=== PATIENT | male | born 1980 | race Caucasian/White ===

== ENCOUNTER 2023-07-20 16:55 | Inpatient (IN) | payer OTHER ==
[~2023-07-20] VITALS: Ht 185.4 cm; Wt 107.9 kg
[2023-07-20 17:18] LABS: Eosinophils # (auto) 0.2 10 ^3/uL (0-0.8); Lymphocytes # (auto) 1.2 10 ^3/uL (0.4-5.4); Lymphocytes % (auto) 5.4 % (10.0-50.0); Monocytes # (auto) 1.1 10 ^3/uL (0-1.3)
[2023-07-20 17:19] LABS: Basophils # (auto) 0.1 10 ^3/uL (0-0.2); Basophils % (auto) 0.4 % (0.0-2.0); Eosinophils % (auto) 0.8 % (0.0-7.0); Hematocrit 50.3 % (41.0-53.0); Hemoglobin 16.8 g/dL (13.5-17.5); Mean Corpuscular Hemoglobin 31.3 pg (28.0-32.0); Mean Corpuscular Hgb Conc. 33.5 g/dL (32.0-36.0); Mean Corpuscular Volume 93.4 fL (80.0-100.0); Monocytes % (auto) 5.2 % (0.0-12.0); Neutrophils # (auto) 19.3 10 ^3/uL (1.6-8.6); Neutrophils % (auto) 88.2 % (37.0-80.0); Red Blood Cells 5.39 10^6/uL (4.5-5.90); Red Cell Distribution Width 13.4 % (11.8-14.3); White Blood Cell 21.9 10^3/uL (4.4-10.8)
[2023-07-20 17:33] LABS: Alanine Aminotransferase 35 U/L (7-40); Albumin 4.5 g/dL (3.2-4.8); Alkaline Phosphatase 100 U/L (46-116); Anion Gap 5 (5-15); Aspartate Aminotransferase 20 U/L (13-40); BUN/Creatinine Ratio 13.9 (10.0-20.0); Blood Urea Nitrogen 15 mg/dL (9-23); Carbon Dioxide 29 mmol/L (20-30); Chloride 99 mmol/L (98-107); Glucose 105 mg/dL (74-106); INR 1.12 (0.9-1.15); Partial Thromboplastin Time 32.5 SEC (24.5-34.5); Potassium 4.6 mmol/L (3.5-5.1); Prothrombin Time 11.7 sec (9.3-11.8); Sodium 133 mmol/L (136-145)
[2023-07-20 17:34] LABS: Bilirubin, Total 1.2 mg/dL (0.2-1.0); Total Protein 7.7 g/dL (5.7-8.2)
[2023-07-20] MEDS: IOHEXOL 350 MG/ML 100ML IJ ONE (20:28)
[2023-07-20 20:47] LABS: Urine Bacteria NONE SEEN /hpf (None Seen); Urine Blood Negative /uL (Negative); Urine Clarity Clear (Clear); Urine Color Yellow (Yellow); Urine Mucus FEW (None Seen); Urine Protein, UAD Negative (Negative); Urine Specific Gravity 1.019 (1.001-1.035); Urine Urobilinogen Normal (Negative); Urine WBC <1 /hpf (0 - 3)
[2023-07-20] MEDS: ASPirin 325 MG TAB PO ONE (21:09)
[2023-07-20] MEDS: ONDANSETRON HCL 4 MG/2 ML VIAL IV ONE ×2 (21:10→21:14)
[2023-07-20] MEDS: MORPHINE SULFATE INJ 2 MG/ml SYRG IV ONE ×2 (21:10→21:13)
[2023-07-20] MEDS ORDERED: cefTRIAXone 2GM/50ML D5W 50 ML IV ONE (21:15)
[2023-07-20] MEDS: IPRATROPIUM BROM 0.5 MG/2.5ML INH SOL NEB ONE (21:38)
[2023-07-20] MEDS: ALBUTEROL SULF 2.5 MG/0.5ML(0.5%) NEB SOLN NEB ONE (21:38)
[2023-07-20] MEDS: DexAMETHasone SOD PHOS 10MG/1ML VIAL INJ IV ONE (21:58)
[2023-07-20] MEDS: cefTRIAXone 1GM/50ML D5W 50 ML IV ONE ×2 (21:58)
[2023-07-20] MEDS: ACETAMINOPHEN 325 MG TAB PO ONE (21:58)
[2023-07-20] MEDS: AZITHROMYCIN 500MG/ 250ML 250 ML IV ONE (23:48)
[2023-07-20 23:54] VITALS: RESP 30; O2SAT 94
[2023-07-21] MEDS ORDERED: NITROGLYCERIN 0.4 MG SL TAB SL PRN (00:30)
[2023-07-21 00:47] VITALS: BP 136/74; PULSE 112; RESP 20; O2SAT 95
[2023-07-21] MEDS: MORPHINE SULFATE INJ 2 MG/ml SYRG IV PRN ×2 (00:57→05:37)
[2023-07-21] MEDS: SODIUM CHLORIDE 0.9% 1,000 ML IV SCH ×2 (01:01→18:03)
[2023-07-21] MEDS ORDERED: metroNIDAZOLE 500MG/100ML 100 ML IV SCH (02:00)
[2023-07-21 03:53] LABS: Red Blood Cells 4.97 10^6/uL (4.5-5.90); Red Cell Distribution Width 13.4 % (11.8-14.3)
[2023-07-21 03:57] LABS: Hematocrit 46.8 % (41.0-53.0); Hemoglobin 15.5 g/dL (13.5-17.5); Mean Corpuscular Hemoglobin 31.1 pg (28.0-32.0); Mean Corpuscular Hgb Conc. 33.1 g/dL (32.0-36.0)
[2023-07-21 04:00] LABS: White Blood Cell 36.9 10^3/uL (4.4-10.8)
[2023-07-21 04:02] LABS: Basophils % (manual) 0 (0.0-2.0); Blast Cells 0; Eosinophils % (manual) 0 (0-7); Metamyelocytes % 0; Myelocytes % 0; Promyelocytes % 0; Reactive Lymphocytes 0
[2023-07-21 04:12] LABS: Alanine Aminotransferase 23 U/L (7-40); Alkaline Phosphatase 81 U/L (46-116); Anion Gap 7 (5-15); Aspartate Aminotransferase 11 U/L (13-40); BUN/Creatinine Ratio 10.8 (10.0-20.0); Blood Urea Nitrogen 14 mg/dL (9-23); Calcium 9.2 mg/dL (8.7-10.4); Carbon Dioxide 26 mmol/L (20-30); Chloride 98 mmol/L (98-107); Glucose 172 mg/dL (74-106); Potassium 4.3 mmol/L (3.5-5.1); Sodium 131 mmol/L (136-145)
[2023-07-21 04:13] LABS: Bilirubin, Total 0.8 mg/dL (0.2-1.0); Total Protein 7.2 g/dL (5.7-8.2)
[2023-07-21 04:33] LABS: Band Neutrophils % (manual) 7; Lymphocytes % (manual) 1 (10.0-50.0); Monocytes % (manual) 2 (0-12); Platelet Estimate Increased
[2023-07-21] MEDS: methylPREDNISolone SOD SUCC 40 MG/ML VL IV SCH (05:44)
[2023-07-21 06:24] VITALS: PULSE 89; RESP 24; O2SAT 97
[2023-07-21] MEDS: IPRATROPIUM BROM 0.5 MG/2.5ML INH SOL NEB PRN (06:24)
[2023-07-21] MEDS: ALBUTEROL SULF 2.5 MG/0.5ML(0.5%) NEB SOLN NEB PRN (06:24)
[2023-07-21 06:32] VITALS: PULSE 90; RESP 24; O2SAT 94
[2023-07-21 07:48] VITALS: PULSE 98; RESP 28; O2SAT 91
[2023-07-21] MEDS: ASPirin 81 mg TAB PO SCH (09:46)
[2023-07-21] MEDS ORDERED: VANCOMYCIN PER PHARMACY 0 MG IV SCH (11:30)
[2023-07-21 11:44] LABS: Rapid Influenza A Negative (Negative); Rapid Influenza B Negative (Negative)
[2023-07-21 11:45] LABS: COVID19 ANTIGEN SOFIA FIA NEGATIVE (NEGATIVE)
[2023-07-21 11:47] LABS: CRP High Sensitivity 18.39 mg/dL (<1.0)
[2023-07-21] MEDS: VANCOMYCIN 1GM/200ML 200 ML IV ONE (14:51)
[2023-07-21] MEDS: SODIUM CHLORIDE 0.9% 3,550 ML IV ONE (15:33)
[2023-07-21] MEDS: PIPERACILLIN-TAZOB 3.375GM 100 ML IV SCH (15:33)
[2023-07-21 19:19] LABS: Amphetamine Screen, Urine Pos (NEGATIVE); Barbiturate Scree,Urine Neg (NEGATIVE); Benzodiazephine Screen, Urine Neg (NEGATIVE); Cannabinoid Screen, Urine Neg (NEGATIVE); Cocaine Screen, Urine Neg (NEGATIVE); Opiate Scree,Urine Pos (NEGATIVE); Phencyclidine Screen, Urine Neg (NEGATIVE)
[2023-07-21] MEDS ORDERED: cefTRIAXone 1GM/50ML D5W 50 ML IV SCH (21:00)
[2023-07-21 21:03] VITALS: PULSE 93; RESP 17; O2SAT 93
[2023-07-21] MEDS ORDERED: AZITHROMYCIN 500MG/ 250ML 250 ML IV SCH (22:00)
[2023-07-21] MEDS: VANCOMYCIN 1GM/200ML 200 ML IV SCH (23:17)
[2023-07-22] VITALS (11 sets, daily range): BP systolic 136–137; BP diastolic 74–76; PULSE 88–105; RESP 18–90; TEMP 98.7–100.2; O2SAT 90–100
[2023-07-22] MEDS: ONDANSETRON HCL 4 MG/2 ML VIAL IV PRN (02:40)
[2023-07-22 05:15] LABS: Alanine Aminotransferase 16 U/L (7-40); Albumin 3.6 g/dL (3.2-4.8); Alkaline Phosphatase 74 U/L (46-116); Anion Gap 6 (5-15); Aspartate Aminotransferase 8 U/L (13-40); BUN/Creatinine Ratio 18.1 (10.0-20.0); Bilirubin, Total 0.2 mg/dL (0.2-1.0); Blood Urea Nitrogen 17 mg/dL (9-23); Calcium 8.9 mg/dL (8.7-10.4); Carbon Dioxide 24 mmol/L (20-30); Chloride 104 mmol/L (98-107); Glucose 123 mg/dL (74-106); Magnesium 2.1 mg/dL (1.6-2.6); Potassium 4.4 mmol/L (3.5-5.1); Sodium 134 mmol/L (136-145); Total Protein 6.5 g/dL (5.7-8.2)
[2023-07-22 05:18] LABS: Hematocrit 41.4 % (41.0-53.0); Hemoglobin 13.5 g/dL (13.5-17.5); Mean Corpuscular Hgb Conc. 32.7 g/dL (32.0-36.0); Mean Corpuscular Volume 94.7 fL (80.0-100.0); Red Blood Cells 4.37 10^6/uL (4.5-5.90); Red Cell Distribution Width 13.7 % (11.8-14.3)
[2023-07-22 05:47] LABS: Basophils % (manual) 0 (0.0-2.0); Blast Cells 0; Eosinophils % (manual) 0 (0-7); Metamyelocytes % 0; Myelocytes % 0; Promyelocytes % 0; Reactive Lymphocytes 0
[2023-07-22] MEDS: MORPHINE SULFATE 4 MG/ML SYR/VIAL IV PRN (11:50)
[2023-07-22 14:17] LABS: Band Neutrophils % (manual) 4; Lymphocytes % (manual) 4 (10.0-50.0); Monocytes % (manual) 6 (0-12)
[2023-07-22 14:18] LABS: Platelet Estimate Increased
[2023-07-22] MEDS: HYDROcodone-ACET 5/325MG TAB PO PRN (15:31)
[2023-07-22] MEDS: PIPERACILLIN-TAZOB 3.375GM 100 ML IV SCH (18:35)
[2023-07-22] MEDS ORDERED: ATEN-60 PO (19:14)
[2023-07-22] MEDS ORDERED: HYDR25TA4 PO (19:14)
[2023-07-22 20:20] LABS: Hepatitis B Surface Antigen Negative (Negative)
[2023-07-22 20:41] LABS: Hepatitis C Antibody Negative (Negative)
[2023-07-22] MEDS: VANCOMYCIN 1GM/200ML 200 ML IV SCH (22:06)
[2023-07-23] VITALS (17 sets, daily range): BP systolic 114–146; BP diastolic 68–91; PULSE 73–106; RESP 12–30; TEMP 98.3–99.9; O2SAT 91–98
[2023-07-23] MEDS: HYDROmorphone HCL 2 MG/ML VL/or syr IV ONE (00:46)
[2023-07-23 05:35] LABS: Basophils # (auto) 0.1 10 ^3/uL (0-0.2); Basophils % (auto) 0.4 % (0.0-2.0); Eosinophils # (auto) 0.4 10 ^3/uL (0-0.8); Eosinophils % (auto) 1.4 % (0.0-7.0); Hematocrit 43.7 % (41.0-53.0); Hemoglobin 14.4 g/dL (13.5-17.5); Lymphocytes # (auto) 1.8 10 ^3/uL (0.4-5.4); Lymphocytes % (auto) 7.2 % (10.0-50.0); Mean Corpuscular Hemoglobin 31.2 pg (28.0-32.0); Mean Corpuscular Hgb Conc. 32.8 g/dL (32.0-36.0); Neutrophils # (auto) 20.5 10 ^3/uL (1.6-8.6); Red Cell Distribution Width 13.6 % (11.8-14.3); White Blood Cell 24.7 10^3/uL (4.4-10.8)
[2023-07-23 05:43] LABS: Calcium 9.2 mg/dL (8.5-10.1); Chloride 100 mmol/L (98-107); Potassium 5.2 mmol/L (3.5-5.1); Sodium 132 mmol/L (136-145)
[2023-07-23 05:44] LABS: Anion Gap 6 (5-15); Carbon Dioxide 26 mmol/L (20-30)
[2023-07-23 05:49] LABS: BUN/Creatinine Ratio 15.2 (10.0-20.0); Blood Urea Nitrogen 16 mg/dL (9-23); Glucose 103 mg/dL (74-106)
[2023-07-23] MEDS: SODIUM ZIRCONIUM CYCL 10 GM PAK PO ONE (08:22)
[2023-07-23] MEDS: MORPHINE SULFATE 4 MG/ML SYR/VIAL IV PRN (08:22)
[2023-07-23] MEDS: FUROSEMIDE 100 MG/10ML VIAL IV ONE (10:41)
[2023-07-23] MEDS: HYDROCORTISONE SOD SUCC 100 MG/2ML INJ VIAL IV ONE (13:47)
[2023-07-23] MEDS: DOXYCYCLINE 100MG/250ML 250 ML IV SCH (13:47)
[2023-07-23] MEDS: DOCUSATE SOD 100 MG CAP PO PRN (13:50)
[2023-07-23] MEDS: fentaNYL CITRATE 100 MCG/2 ML VL ONE (15:38)
[2023-07-23] MEDS: MEROPENEM 1GM IVPB 50 ML IV SCH (18:02)
[2023-07-23 20:32] LABS: Body Fluid Polymorphonuclear 88 % (0-25); Body Fluid Red Blood Cells 1375 CUMM (0-2000); Body Fluid White Blood Cells 728 CUMM (0-200)
[2023-07-23] MEDS: LIDOCAINE 2%HCL (LOCAL ANESTH.) INJ 10ml MDV ONE (23:05)
[2023-07-24] VITALS (63 sets, daily range): BP systolic 116–147; BP diastolic 69–97; PULSE 65–91; RESP 10–30; TEMP 98.2–99.3; O2SAT 88–100
[2023-07-24 01:06] LABS: Free Thyroxine Index 2.3 (1.2-4.9); Thyroxine (T4) 6.2 ug/dL (4.5-12.0)
[2023-07-24 04:10] LABS: Basophils # (auto) 0.1 10 ^3/uL (0-0.2); Basophils % (auto) 0.6 % (0.0-2.0); Eosinophils # (auto) 0.2 10 ^3/uL (0-0.8); Eosinophils % (auto) 0.9 % (0.0-7.0); Hematocrit 40.2 % (41.0-53.0); Hemoglobin 13.1 g/dL (13.5-17.5); Lymphocytes # (auto) 2.6 10 ^3/uL (0.4-5.4); Lymphocytes % (auto) 14.1 % (10.0-50.0); Mean Corpuscular Hemoglobin 30.6 pg (28.0-32.0); Mean Corpuscular Hgb Conc. 32.7 g/dL (32.0-36.0); Mean Corpuscular Volume 93.7 fL (80.0-100.0); Monocytes # (auto) 1.5 10 ^3/uL (0-1.3); Monocytes % (auto) 8.1 % (0.0-12.0); Neutrophils # (auto) 14.1 10 ^3/uL (1.6-8.6); Neutrophils % (auto) 76.3 % (37.0-80.0); Nucleated Red Blood Cells % 0.1 %; Red Blood Cells 4.28 10^6/uL (4.5-5.90); Red Cell Distribution Width 13.4 % (11.8-14.3); White Blood Cell 18.5 10^3/uL (4.4-10.8)
[2023-07-24 04:31] LABS: Alanine Aminotransferase 39 U/L (7-40); Alkaline Phosphatase 83 U/L (46-116); Anion Gap 4 (5-15); BUN/Creatinine Ratio 13.5 (10.0-20.0); Blood Urea Nitrogen 14 mg/dL (9-23); Calcium 9.3 mg/dL (8.7-10.4); Carbon Dioxide 32 mmol/L (20-30); Chloride 100 mmol/L (98-107); Glucose 110 mg/dL (74-106); Magnesium 2.2 mg/dL (1.6-2.6); Potassium 4.5 mmol/L (3.5-5.1); Sodium 136 mmol/L (136-145)
[2023-07-24 04:32] LABS: Albumin 3.5 g/dL (3.2-4.8); Aspartate Aminotransferase 26 U/L (13-40); Bilirubin, Total 0.3 mg/dL (0.2-1.0); Total Protein 6.6 g/dL (5.7-8.2)
[2023-07-24 04:57] LABS: CRP High Sensitivity > 20.00 mg/dL (<1.0)
[2023-07-24] MEDS: HYDROCORTISONE SOD SUCC 100 MG/2ML INJ VIAL IV SCH (10:07)
[2023-07-24] MEDS: FUROSEMIDE 40 MG/4 ML VIAL IV ONE (14:36)
[2023-07-25] VITALS (33 sets, daily range): BP systolic 125–157; BP diastolic 79–98; PULSE 64–91; RESP 12–24; TEMP 98–99.2; O2SAT 85–99
[2023-07-25 03:01] LABS: Basophils # (auto) 0.1 10 ^3/uL (0-0.2); Basophils % (auto) 0.7 % (0.0-2.0); Eosinophils # (auto) 0.2 10 ^3/uL (0-0.8); Eosinophils % (auto) 1.6 % (0.0-7.0); Nucleated Red Blood Cells % 0.1 %
[2023-07-25 03:03] LABS: Hematocrit 41.1 % (41.0-53.0); Hemoglobin 13.5 g/dL (13.5-17.5); Lymphocytes # (auto) 2.8 10 ^3/uL (0.4-5.4); Lymphocytes % (auto) 20.5 % (10.0-50.0); Mean Corpuscular Hemoglobin 30.6 pg (28.0-32.0); Mean Corpuscular Hgb Conc. 32.9 g/dL (32.0-36.0); Mean Corpuscular Volume 93.1 fL (80.0-100.0); Monocytes # (auto) 1.3 10 ^3/uL (0-1.3); Monocytes % (auto) 9.6 % (0.0-12.0); Neutrophils # (auto) 9.3 10 ^3/uL (1.6-8.6); Neutrophils % (auto) 67.6 % (37.0-80.0); Red Blood Cells 4.41 10^6/uL (4.5-5.90); Red Cell Distribution Width 13.5 % (11.8-14.3); White Blood Cell 13.7 10^3/uL (4.4-10.8)
[2023-07-25 03:22] LABS: Alanine Aminotransferase 80 U/L (7-40); Albumin 3.4 g/dL (3.2-4.8); Alkaline Phosphatase 79 U/L (46-116); Anion Gap 7 (5-15); Aspartate Aminotransferase 51 U/L (13-40); BUN/Creatinine Ratio 16.7 (10.0-20.0); Blood Urea Nitrogen 14 mg/dL (9-23); Calcium 9.1 mg/dL (8.7-10.4); Carbon Dioxide 29 mmol/L (20-30); Chloride 99 mmol/L (98-107); Glucose 116 mg/dL (74-106); Magnesium 2.1 mg/dL (1.6-2.6); Sodium 135 mmol/L (136-145)
[2023-07-25 03:23] LABS: Bilirubin, Total 0.2 mg/dL (0.2-1.0); Total Protein 6.3 g/dL (5.7-8.2)
[2023-07-25] MEDS: CATHFLO ACTIVASE (ALTEPLASE) 2 MG VIAL IV ONE (10:07)
[2023-07-25] MEDS: MORPHINE SULFATE 4 MG/ML SYR/VIAL IV PRN (20:20)
[2023-07-26] VITALS (26 sets, daily range): BP systolic 126–149; BP diastolic 76–97; PULSE 70–95; RESP 14–43; TEMP 97.5–98.5; O2SAT 86–93
[2023-07-26 04:31] LABS: Basophils # (auto) 0.1 10 ^3/uL (0-0.2); Basophils % (auto) 0.8 % (0.0-2.0); Eosinophils # (auto) 0.2 10 ^3/uL (0-0.8); Eosinophils % (auto) 1.1 % (0.0-7.0); Hematocrit 45.8 % (41.0-53.0); Hemoglobin 15.1 g/dL (13.5-17.5); Lymphocytes # (auto) 3.1 10 ^3/uL (0.4-5.4); Lymphocytes % (auto) 20.9 % (10.0-50.0); Mean Corpuscular Hemoglobin 30.9 pg (28.0-32.0); Mean Corpuscular Hgb Conc. 32.9 g/dL (32.0-36.0); Mean Corpuscular Volume 93.9 fL (80.0-100.0); Monocytes % (auto) 13.5 % (0.0-12.0); Neutrophils # (auto) 9.3 10 ^3/uL (1.6-8.6); Neutrophils % (auto) 63.7 % (37.0-80.0); Red Blood Cells 4.88 10^6/uL (4.5-5.90); Red Cell Distribution Width 13.8 % (11.8-14.3); White Blood Cell 14.7 10^3/uL (4.4-10.8)
[2023-07-26 04:49] LABS: Alanine Aminotransferase 91 U/L (7-40); Albumin 3.7 g/dL (3.2-4.8); Alkaline Phosphatase 93 U/L (46-116); Anion Gap 5 (5-15); Aspartate Aminotransferase 43 U/L (13-40); BUN/Creatinine Ratio 17.7 (10.0-20.0); Blood Urea Nitrogen 17 mg/dL (9-23); Calcium 9.4 mg/dL (8.7-10.4); Carbon Dioxide 32 mmol/L (20-30); Chloride 98 mmol/L (98-107); Glucose 96 mg/dL (74-106); Magnesium 2.1 mg/dL (1.6-2.6); Sodium 135 mmol/L (136-145)
[2023-07-26 04:50] LABS: Bilirubin, Total 0.2 mg/dL (0.2-1.0); Total Protein 6.8 g/dL (5.7-8.2)
[2023-07-26 05:24] LABS: CRP High Sensitivity 10.47 mg/dL (<1.0)
[2023-07-26 05:59] LABS: Base Excess 2.3 mmol/L (-2.0-2.0)
[2023-07-26] MEDS: FUROSEMIDE 40 MG/4 ML VIAL IV ONE ×2 (09:13→19:05)
[2023-07-26] MEDS: CATHFLO ACTIVASE (ALTEPLASE) 2 MG VIAL IV ONE (10:47)
[2023-07-26 12:06] LABS: Protein, Body Fluid 5.1 g/dL (.)
[2023-07-26 18:47] LABS: Hematocrit 44.6 % (41.0-53.0); Hemoglobin 14.5 g/dL (13.5-17.5)
[2023-07-26] MEDS: FUROSEMIDE 40 MG/4 ML VIAL ONE (19:04)
[2023-07-27] VITALS (21 sets, daily range): BP systolic 120–163; BP diastolic 69–92; PULSE 68–105; RESP 13–27; TEMP 97.9–98.7; O2SAT 83–100
[2023-07-27 04:24] LABS: Basophils # (auto) 0.1 10 ^3/uL (0-0.2); Basophils % (auto) 1.1 % (0.0-2.0); Eosinophils # (auto) 0.2 10 ^3/uL (0-0.8); Hemoglobin 13.6 g/dL (13.5-17.5); Lymphocytes # (auto) 2.8 10 ^3/uL (0.4-5.4); Mean Corpuscular Hgb Conc. 33.1 g/dL (32.0-36.0); Neutrophils # (auto) 7.4 10 ^3/uL (1.6-8.6); White Blood Cell 12.1 10^3/uL (4.4-10.8)
[2023-07-27 04:27] LABS: Eosinophils % (auto) 1.9 % (0.0-7.0); Lymphocytes % (auto) 23.1 % (10.0-50.0); Mean Corpuscular Hemoglobin 30.9 pg (28.0-32.0); Mean Corpuscular Volume 93.3 fL (80.0-100.0); Monocytes # (auto) 1.5 10 ^3/uL (0-1.3); Monocytes % (auto) 12.7 % (0.0-12.0); Neutrophils % (auto) 61.2 % (37.0-80.0); Red Blood Cells 4.39 10^6/uL (4.5-5.90); Red Cell Distribution Width 13.5 % (11.8-14.3)
[2023-07-27 04:45] LABS: Alanine Aminotransferase 87 U/L (7-40); Albumin 3.3 g/dL (3.2-4.8); Alkaline Phosphatase 85 U/L (46-116); Anion Gap 4 (5-15); Aspartate Aminotransferase 43 U/L (13-40); BUN/Creatinine Ratio 22.9 (10.0-20.0); Bilirubin, Total < 0.2 mg/dL (0.2-1.0); Blood Urea Nitrogen 19 mg/dL (9-23); Calcium 9.1 mg/dL (8.7-10.4); Carbon Dioxide 31 mmol/L (20-30); Chloride 100 mmol/L (98-107); Glucose 109 mg/dL (74-106); Potassium 4.1 mmol/L (3.5-5.1); Sodium 135 mmol/L (136-145)
[2023-07-27] MEDS: FUROSEMIDE 40 MG/4 ML VIAL IV SCH ×2 (08:34→16:03)
[2023-07-27 14:34] LABS: Base Excess 4.5 mmol/L (-2.0-2.0)
[2023-07-27] MEDS: dilTIAZem 25 MG/5 ML VIAL IV ONE (22:15)
[2023-07-28] VITALS (20 sets, daily range): BP systolic 119–150; BP diastolic 68–83; PULSE 81–111; RESP 17–29; TEMP 97.6–98.7; O2SAT 81–99
[2023-07-28 04:54] LABS: Basophils # (auto) 0.1 10 ^3/uL (0-0.2); Eosinophils # (auto) 0.4 10 ^3/uL (0-0.8); Eosinophils % (auto) 2.7 % (0.0-7.0)
[2023-07-28 04:55] LABS: Basophils % (auto) 0.6 % (0.0-2.0); Hematocrit 46.5 % (41.0-53.0); Hemoglobin 15.4 g/dL (13.5-17.5); Lymphocytes # (auto) 2.4 10 ^3/uL (0.4-5.4); Lymphocytes % (auto) 17.4 % (10.0-50.0); Mean Corpuscular Hemoglobin 30.8 pg (28.0-32.0); Mean Corpuscular Hgb Conc. 33.1 g/dL (32.0-36.0); Mean Corpuscular Volume 93.2 fL (80.0-100.0); Monocytes # (auto) 1.2 10 ^3/uL (0-1.3); Monocytes % (auto) 8.5 % (0.0-12.0); Neutrophils # (auto) 9.7 10 ^3/uL (1.6-8.6); Neutrophils % (auto) 70.8 % (37.0-80.0); Red Blood Cells 4.99 10^6/uL (4.5-5.90); White Blood Cell 13.7 10^3/uL (4.4-10.8)
[2023-07-28 05:06] LABS: Alanine Aminotransferase 122 U/L (7-40); Albumin 3.8 g/dL (3.2-4.8); Alkaline Phosphatase 103 U/L (46-116); Anion Gap 4 (5-15); Aspartate Aminotransferase 55 U/L (13-40); BUN/Creatinine Ratio 15.1 (10.0-20.0); Bilirubin, Total 0.2 mg/dL (0.2-1.0); Blood Urea Nitrogen 16 mg/dL (9-23); Calcium 9.1 mg/dL (8.5-10.1); Carbon Dioxide 32 mmol/L (20-30); Chloride 99 mmol/L (98-107); Glucose 101 mg/dL (74-106); Potassium 4.2 mmol/L (3.5-5.1); Sodium 135 mmol/L (136-145)
[2023-07-28 05:14] LABS: CRP High Sensitivity 4.38 mg/dL (<1.0)
[2023-07-28] MEDS ORDERED: BUMETANIDE INJECTION 12.5 MG in GIVE UN-DILUTED 0 ML IV SCH (07:45)
[2023-07-28 08:27] LABS: Base Excess 2.8 mmol/L (-2.0-2.0)
[2023-07-28] MEDS: FUROSEMIDE 40 MG/4 ML VIAL IV ONE (09:44)
[2023-07-28] MEDS: FUROSEMIDE 40 MG/4 ML VIAL IV SCH (17:48)
[2023-07-28] MEDS: VANCOMYCIN 1GM/200ML 200 ML IV SCH (20:00)
[2023-07-29] VITALS (23 sets, daily range): BP systolic 120–150; BP diastolic 63–83; PULSE 73–110; RESP 12–32; TEMP 97.9–99.9; O2SAT 92–100
[2023-07-29 04:46] LABS: Basophils # (auto) 0.1 10 ^3/uL (0-0.2); Basophils % (auto) 1.1 % (0.0-2.0); Eosinophils # (auto) 0.3 10 ^3/uL (0-0.8); Lymphocytes # (auto) 1.7 10 ^3/uL (0.4-5.4); Red Cell Distribution Width 13.8 % (11.8-14.3)
[2023-07-29 04:48] LABS: Eosinophils % (auto) 2.9 % (0.0-7.0); Hematocrit 42.4 % (41.0-53.0); Lymphocytes % (auto) 16.9 % (10.0-50.0); Mean Corpuscular Hemoglobin 30.7 pg (28.0-32.0); Mean Corpuscular Hgb Conc. 33.1 g/dL (32.0-36.0); Mean Corpuscular Volume 92.7 fL (80.0-100.0); Monocytes # (auto) 1.4 10 ^3/uL (0-1.3); Monocytes % (auto) 14.2 % (0.0-12.0); Neutrophils # (auto) 6.4 10 ^3/uL (1.6-8.6); Neutrophils % (auto) 64.9 % (37.0-80.0); Red Blood Cells 4.58 10^6/uL (4.5-5.90); White Blood Cell 9.9 10^3/uL (4.4-10.8)
[2023-07-29 05:07] LABS: Alanine Aminotransferase 108 U/L (7-40); Albumin 3.3 g/dL (3.2-4.8); Alkaline Phosphatase 107 U/L (46-116); Anion Gap 2 (5-15); Aspartate Aminotransferase 40 U/L (13-40); BUN/Creatinine Ratio 18.9 (10.0-20.0); Blood Urea Nitrogen 18 mg/dL (9-23); Calcium 9.1 mg/dL (8.7-10.4); Carbon Dioxide 33 mmol/L (20-30); Chloride 100 mmol/L (98-107); Glucose 110 mg/dL (74-106); Magnesium 2.1 mg/dL (1.6-2.6); Potassium 4.2 mmol/L (3.5-5.1); Sodium 135 mmol/L (136-145)
[2023-07-29 05:08] LABS: Bilirubin, Total 0.2 mg/dL (0.2-1.0); Total Protein 6.1 g/dL (5.7-8.2)
[2023-07-29] MEDS: VANCOMYCIN 1GM/200ML 200 ML IV SCH (07:54)
[2023-07-30] VITALS (20 sets, daily range): BP systolic 109–165; BP diastolic 60–96; PULSE 75–114; RESP 11–23; TEMP 98.4–101.5; O2SAT 86–100
[2023-07-30] MEDS: ACETAMINOPHEN 325 MG TAB PO PRN (01:32)
[2023-07-30 07:16] LABS: Basophils # (auto) 0.1 10 ^3/uL (0-0.2); Eosinophils # (auto) 0.5 10 ^3/uL (0-0.8); Lymphocytes # (auto) 1.4 10 ^3/uL (0.4-5.4); Lymphocytes % (auto) 13.5 % (10.0-50.0); Neutrophils # (auto) 7.3 10 ^3/uL (1.6-8.6); White Blood Cell 10.4 10^3/uL (4.4-10.8)
[2023-07-30 07:24] LABS: Basophils % (auto) 0.7 % (0.0-2.0); Eosinophils % (auto) 4.9 % (0.0-7.0); Hematocrit 42.4 % (41.0-53.0); Hemoglobin 14.2 g/dL (13.5-17.5); Mean Corpuscular Hemoglobin 30.9 pg (28.0-32.0); Mean Corpuscular Hgb Conc. 33.4 g/dL (32.0-36.0); Mean Corpuscular Volume 92.6 fL (80.0-100.0); Monocytes # (auto) 1.2 10 ^3/uL (0-1.3); Monocytes % (auto) 11.2 % (0.0-12.0); Neutrophils % (auto) 69.7 % (37.0-80.0); Red Blood Cells 4.58 10^6/uL (4.5-5.90); Red Cell Distribution Width 14.1 % (11.8-14.3)
[2023-07-30 07:43] LABS: Alanine Aminotransferase 116 U/L (7-40); Albumin 3.5 g/dL (3.2-4.8); Alkaline Phosphatase 114 U/L (46-116); Anion Gap 5 (5-15); Aspartate Aminotransferase 57 U/L (13-40); BUN/Creatinine Ratio 20.6 (10.0-20.0); Blood Urea Nitrogen 20 mg/dL (9-23); Calcium 8.9 mg/dL (8.5-10.1); Carbon Dioxide 31 mmol/L (20-30); Chloride 98 mmol/L (98-107); Glucose 102 mg/dL (74-106); Potassium 4.5 mmol/L (3.5-5.1); Sodium 134 mmol/L (136-145)
[2023-07-30 07:44] LABS: Bilirubin, Total 0.2 mg/dL (0.2-1.0); Total Protein 6.6 g/dL (5.7-8.2)
[2023-07-30 10:15] LABS: Base Excess 3.8 mmol/L (-2.0-2.0)
[2023-07-30] MEDS: FUROSEMIDE 20 MG/2 ML VIAL IV ONE (12:58)
[2023-07-30] MEDS: FUROSEMIDE 40 MG/4 ML VIAL IV SCH (17:55)
[2023-07-30] MEDS: hydrALAZINE HCL 20 MG/ML VL IV PRN (23:30)
[2023-07-31] VITALS (24 sets, daily range): BP systolic 108–176; BP diastolic 48–100; PULSE 78–106; RESP 11–29; TEMP 96.2–103.3; O2SAT 80–100
[2023-07-31 05:39] LABS: Basophils # (auto) 0 10 ^3/uL (0-0.2); Basophils % (auto) 0.3 % (0.0-2.0); Eosinophils # (auto) 0.4 10 ^3/uL (0-0.8); Eosinophils % (auto) 3.8 % (0.0-7.0); Hematocrit 43.8 % (41.0-53.0); Hemoglobin 14.6 g/dL (13.5-17.5); Lymphocytes # (auto) 1.3 10 ^3/uL (0.4-5.4); Mean Corpuscular Hemoglobin 30.5 pg (28.0-32.0); Mean Corpuscular Hgb Conc. 33.3 g/dL (32.0-36.0); Mean Corpuscular Volume 91.5 fL (80.0-100.0); Monocytes # (auto) 1.1 10 ^3/uL (0-1.3); Monocytes % (auto) 10.6 % (0.0-12.0); Neutrophils # (auto) 7.3 10 ^3/uL (1.6-8.6); Neutrophils % (auto) 72.3 % (37.0-80.0); Nucleated Red Blood Cells % 0.1 %; Red Blood Cells 4.79 10^6/uL (4.5-5.90); Red Cell Distribution Width 13.8 % (11.8-14.3); White Blood Cell 10.1 10^3/uL (4.4-10.8)
[2023-07-31 06:05] LABS: Alanine Aminotransferase 91 U/L (7-40); Alkaline Phosphatase 105 U/L (46-116); Anion Gap 2 (5-15); BUN/Creatinine Ratio 20.5 (10.0-20.0); Blood Urea Nitrogen 17 mg/dL (9-23); Calcium 9.1 mg/dL (8.7-10.4); Carbon Dioxide 32 mmol/L (20-30); Chloride 99 mmol/L (98-107); Glucose 107 mg/dL (74-106); Magnesium 2.1 mg/dL (1.6-2.6); Potassium 4.5 mmol/L (3.5-5.1); Sodium 133 mmol/L (136-145)
[2023-07-31 06:06] LABS: Albumin 3.5 g/dL (3.2-4.8); Aspartate Aminotransferase 33 U/L (13-40)
[2023-07-31 06:07] LABS: Bilirubin, Total 0.2 mg/dL (0.2-1.0); Total Protein 6.6 g/dL (5.7-8.2)
[2023-07-31] MEDS ORDERED: IOHEXOL 300 MG/ML 100ML BOTTLE IJ ONE (07:05)
[2023-07-31] MEDS: VANCOMYCIN 1GM/200ML 200 ML IV SCH (13:34)
[2023-08-01] VITALS (18 sets, daily range): BP systolic 94–161; BP diastolic 48–105; PULSE 79–114; RESP 11–32; TEMP 96.2–100.5; O2SAT 75–100
[2023-08-01 05:00] LABS: Basophils # (auto) 0 10 ^3/uL (0-0.2); Basophils % (auto) 0.7 % (0.0-2.0); Eosinophils # (auto) 0.4 10 ^3/uL (0-0.8); Eosinophils % (auto) 5.5 % (0.0-7.0); Hematocrit 40.9 % (41.0-53.0); Hemoglobin 13.9 g/dL (13.5-17.5); Lymphocytes % (auto) 13.3 % (10.0-50.0); Mean Corpuscular Hemoglobin 30.9 pg (28.0-32.0); Mean Corpuscular Hgb Conc. 33.9 g/dL (32.0-36.0); Mean Corpuscular Volume 91.3 fL (80.0-100.0); Monocytes % (auto) 13.7 % (0.0-12.0); Neutrophils # (auto) 4.8 10 ^3/uL (1.6-8.6); Neutrophils % (auto) 66.8 % (37.0-80.0); Red Blood Cells 4.48 10^6/uL (4.5-5.90); White Blood Cell 7.2 10^3/uL (4.4-10.8)
[2023-08-01 05:19] LABS: Alanine Aminotransferase 81 U/L (7-40); Albumin 3.4 g/dL (3.2-4.8); Alkaline Phosphatase 105 U/L (46-116); Anion Gap 3 (5-15); Aspartate Aminotransferase 41 U/L (13-40); BUN/Creatinine Ratio 20.9 (10.0-20.0); Bilirubin, Total 0.2 mg/dL (0.2-1.0); Blood Urea Nitrogen 18 mg/dL (9-23); Calcium 8.9 mg/dL (8.5-10.1); Carbon Dioxide 32 mmol/L (20-30); Chloride 95 mmol/L (98-107); Glucose 110 mg/dL (74-106); Potassium 4.3 mmol/L (3.5-5.1); Sodium 130 mmol/L (136-145)
[2023-08-01 05:28] LABS: CRP High Sensitivity 6.42 mg/dL (<1.0)
[2023-08-01] MEDS ORDERED: ASPI-325 PO (07:25)
[2023-08-01] MEDS ORDERED: MET500T PO (07:25)
[2023-08-01] MEDS ORDERED: DOX100T PO (07:25)
[2023-08-01] MEDS ORDERED: CEFP200T15 PO (07:25)
[2023-08-01] MEDS: DOXYCYCLINE 100 MG TAB/CAP PO SCH (09:33)
[2023-08-01] MEDS: CEFPODOXIME PROXETIL 200 MG TAB PO SCH (09:34)
[2023-08-01] MEDS: MORPHINE SULFATE 4 MG/ML SYR/VIAL IV PRN (13:39)
[2023-08-01] MEDS: metroNIDAZOLE 500 MG TAB PO SCH (13:39)
[2023-08-02] VITALS (8 sets, daily range): BP systolic 109–116; BP diastolic 64–71; PULSE 70–79; RESP 17–18; TEMP 97.7–98.9; O2SAT 92–98
[2023-08-02 08:38] LABS: Chloride 102 mmol/L (98-107); Potassium 4.2 mmol/L (3.5-5.1)
[2023-08-02 08:39] LABS: Anion Gap 4 (5-15); Carbon Dioxide 30 mmol/L (20-30)
[2023-08-02 08:44] LABS: BUN/Creatinine Ratio 16.9 (10.0-20.0); Blood Urea Nitrogen 14 mg/dL (9-23); Glucose 100 mg/dL (74-106)
[2023-08-02 08:46] LABS: Sodium 136 mmol/L (136-145)
[2023-08-02] MEDS ORDERED: AUG875T PO (12:04)
[2023-08-02] MEDS ORDERED: CLIN150C18 PO (12:04)
[2023-08-05] MEDS ORDERED: DIPH25CA51 PO (14:04)
[2023-08-05] MEDS ORDERED: PRED20TA2 PO (14:04)
[2023-08-05] MEDS ORDERED: EPIN0.1I11 IJ (14:04)
[2023-08-05] MEDS ORDERED: FAMO20TA10 PO (14:04)
== END 2023-08-02 16:30 | disposition home or self-care (01) | DRG 871 ==
LOC: ER 16:55 → TELE 07-21 00:42 → TELE-WESTW 07-21 00:42 → ICU WEST 07-23 13:47 → DOU IN ICU 07-27 23:26 → WEST WING 08-01 15:24 → TELE-WESTW 08-01 23:11 → TELE-CENTR 08-02 06:02
PROVIDERS: ADMIT Internal Medicine; ATTEND Internal Medicine
PROC: 0W9B30Z Drainage of Left Pleural Cavity with Drainage Device, Percutaneous Approach (ICD-10-PCS; principal; 2023-07-23)
PROC: 5A09357 Assistance with Respiratory Ventilation, Less than 24 Consecutive Hours, Continuous Positive Airway Pressure (ICD-10-PCS; 2023-07-26)
PROC: 5A09357 Assistance with Respiratory Ventilation, Less than 24 Consecutive Hours, Continuous Positive Airway Pressure (ICD-10-PCS; 2023-07-28)
PROC: 5A09357 Assistance with Respiratory Ventilation, Less than 24 Consecutive Hours, Continuous Positive Airway Pressure (ICD-10-PCS; 2023-07-29)
PROC: 5A09357 Assistance with Respiratory Ventilation, Less than 24 Consecutive Hours, Continuous Positive Airway Pressure (ICD-10-PCS; 2023-08-02)
DX: A41.9 Sepsis, unspecified organism (principal); J69.0 Pneumonitis due to inhalation of food and vomit; J96.01 Acute respiratory failure with hypoxia; J86.9 Pyothorax without fistula; J90 Pleural effusion, not elsewhere classified; E87.1 Hypo-osmolality and hyponatremia; N30.90 Cystitis, unspecified without hematuria; Z20.822 Contact with and (suspected) exposure to COVID-19; I16.0 Hypertensive urgency; I25.10 Atherosclerotic heart disease of native coronary artery without angina pectoris; D75.839 Thrombocytosis, unspecified; E66.9 Obesity, unspecified; E87.5 Hyperkalemia; D64.9 Anemia, unspecified; E11.9 Type 2 diabetes mellitus without complications; R74.01 Elevation of levels of liver transaminase levels; F15.90 Other stimulant use, unspecified, uncomplicated; Z68.35 Body mass index [BMI] 35.0-35.9, adult; Z91.199 Patient's noncompliance with other medical treatment and regimen due to unspecified reason; Z79.4 Long term (current) use of insulin
CPT/HCPCS: 10005; 36415; 36600; 71045; 71250; 71260; 74177; 76604; 77012; 80048; 80053; 80061; 80202; 80307; 81001; 82565; 82805; 83036; 83605; 83615; 83735; 83880; 83986; 84443; 84484; 85007; 85014; 85018; 85025; 85027; 85379; 85610; 85730; 86141; 86703; 86803; 87040; 87070; 87077; 87081; 87086; 87205; 87340; 87426; 87804; 89051; 93005; 93306; 93970; 94640; 94660; 96365; 96375; A4223; G0378; J1100; J2001; J2185; J2405; J2543; J3490